=== PATIENT | female | born 1940 | race Hispanic/Latino ===

== ENCOUNTER 2024-05-06 04:22 | Emergency (ER) | payer MEDICARE, OTHER ==
[~2024-05-06] VITALS: Ht 157.5 cm; Wt 62.1 kg
[~2024-05-06 04:22] MED LIST: ALBUTEROL SULF8.5 GM INH; AMLODIPINE BESYL5 MG PO; ATORVASTATIN CA10 MG PO; COLACE100 MG PO; HYDROCHLOROTHIA25 MG PO; LEVAQUIN500 MG PO; LEVOTHYROXINE50 MCG PO; LEVOTHYROXINE75 MCG PO; LEXAPRO20 MG PO; METPCK PO; SENOKOT8.6 MG PO
[2024-05-06 07:48] VITALS: PULSE 74; RESP 16; TEMP 97.1; O2SAT 97
[2024-05-06] MEDS ORDERED: NAPROXEN250 MG PO (07:48)
== END 2024-05-06 08:00 | disposition home or self-care (01) ==
LOC: ER 04:28
DX: R50.9 Fever, unspecified (principal); R07.81 Pleurodynia; W18.39XA Other fall on same level, initial encounter; Y93.01 Activity, walking, marching and hiking; Y92.89 Other specified places as the place of occurrence of the external cause; I10 Essential (primary) hypertension; E78.5 Hyperlipidemia, unspecified; E78.00 Pure hypercholesterolemia, unspecified; F41.9 Anxiety disorder, unspecified
CPT/HCPCS: 71250; 99283

== ENCOUNTER 2024-10-08 11:36 | Emergency (ER) | payer MEDICARE ==
[~2024-10-08] VITALS: Ht 157.5 cm; Wt 62.1 kg
[~2024-10-08 11:36] MED LIST changes: +NAPROXEN250 MG PO
[2024-10-08 11:44] VITALS: PULSE 86; RESP 18; TEMP 98.1; O2SAT 96
[2024-10-08] MEDS: HYDROCODONE/APAP 5MG-325MG TAB PO ONE (13:05)
[2024-10-08] MEDS ORDERED: HYDROCODON-ACE1 EA11 PO (14:23)
== END 2024-10-08 15:12 | disposition home or self-care (01) ==
LOC: ER 11:58
DX: S52.592A Other fractures of lower end of left radius, initial encounter for closed fracture (principal); S52.612A Displaced fracture of left ulna styloid process, initial encounter for closed fracture; S09.90XA Unspecified injury of head, initial encounter; W01.0XXA Fall on same level from slipping, tripping and stumbling without subsequent striking against object, initial encounter; Y93.01 Activity, walking, marching and hiking; Y92.89 Other specified places as the place of occurrence of the external cause; I10 Essential (primary) hypertension; E78.5 Hyperlipidemia, unspecified; E78.00 Pure hypercholesterolemia, unspecified; F41.9 Anxiety disorder, unspecified; F32.A Depression, unspecified
CPT/HCPCS: 70450; 72125; 99283

== ENCOUNTER 2025-07-01 21:06 | Inpatient (IN) | payer MEDICARE ==
[~2025-07-01] VITALS: Ht 157.5 cm; Wt 62.3 kg
[~2025-07-01 21:06] MED LIST changes: +HYDROCODON-ACE1 EA11 PO
[2025-07-01 21:10] VITALS: RESP 16; TEMP 98
[2025-07-01 22:06] LABS: BASOPHILS % 0.6 % (0.0-1.0); EOSINOPHILS % 0.0 % (0.0-6.0); LYMPHOCYTES % 4.6 % (18.0-39.1); MONOCYTES % 5.4 % (4.4-11.3); NEUTROPHILS % 88.6 % (38.7-80.0); RED CELL DISTRIBUTION WIDTH 13.6 % (11.7-14.4)
[2025-07-01 22:30] LABS: EST GLOMERULAR FILTRATION RATE 66.0 ML/MIN (>=60)
[2025-07-01 23:39] LABS: CORONAVIRUS COVID-19 AG NEGATIVE (NEGATIVE)
[2025-07-01] MEDS ORDERED: ONDANSETRON HCL INJ 2MG/ML 2ML 2 MG/ML VIAL IV PRN (23:45)
[2025-07-02] VITALS (12 sets, daily range): BP systolic 132–164; BP diastolic 42–99; PULSE 84–96; RESP 17–20; TEMP 98.5–101.3; O2SAT 94–98
[2025-07-02] MEDS: SODIUM CHLORIDE 0.9% 1000ML 1,000 ML IV SCH (00:10)
[2025-07-02] MEDS: Morphine 2mg Syringe 2 MG/ML SYR IV PRN (02:41)
[2025-07-02 07:59] LABS: BASOPHILS % 0.2 % (0.0-1.0); EOSINOPHILS % 0.0 % (0.0-6.0); LYMPHOCYTES % 14.5 % (18.0-39.1); MONOCYTES % 0.2 % (4.4-11.3); NEUTROPHILS % 84.6 % (38.7-80.0); RED CELL DISTRIBUTION WIDTH 13.9 % (11.7-14.4)
[2025-07-02 08:21] LABS: EST GLOMERULAR FILTRATION RATE 78.0 ML/MIN (>=60)
[2025-07-02] MEDS: ACETAMINOPHEN 325 MG TAB PO PRN (10:07)
[2025-07-02 10:53] LABS: LEUKOCYTE ESTERASE ,URINE NEGATIVE (NEGATIVE); PROTEIN,URINE DIPSTICK TRACE (NEGATIVE)
[2025-07-02 10:54] LABS: URINE UROBILINOGEN 0.2 mg/dL (0.2 - 1)
[2025-07-02 10:57] LABS: EPITHELIAL CELLS,URINE FEW /LPF; WBC,URINE (MAN) 0-5 /HPF (0-5)
[2025-07-02] MEDS: LEVOFLOXACIN 750MG/D5W 150ML 150 ML IV SCH (11:15)
[2025-07-02] MEDS: ONDANSETRON HCL INJ 2MG/ML 2ML 2 MG/ML VIAL IV STA (18:28)
[2025-07-02] MEDS: PANTOPRAZOLE SOD 40 MG TABEC PO SCH (18:30)
[2025-07-03] VITALS (11 sets, daily range): BP systolic 123–161; BP diastolic 50–72; PULSE 62–95; RESP 18–20; TEMP 97.5–101.3; O2SAT 95–100
[2025-07-03] MEDS ORDERED: HYDRALAZINE HCL 20 MG/ML VIAL IV PRN (13:15)
[2025-07-03] MEDS ORDERED: ALBUTEROL SULF 0.083% NEB SOLN 3 ML NEB NEB PRN (13:15)
[2025-07-03] MEDS: AMLODIPINE BESYLATE 5 MG TAB PO SCH (17:55)
[2025-07-03] MEDS: ATORVASTATIN 40 MG TAB PO SCH (20:43)
[2025-07-04] VITALS (9 sets, daily range): BP systolic 119–159; BP diastolic 49–59; PULSE 60–77; RESP 18–20; TEMP 97.2–99.1; O2SAT 94–100
[2025-07-04] MEDS: LEVOTHYROXINE SODIUM 125 MCG TAB PO SCH (05:27)
[2025-07-04] MEDS: IBUPROFEN 600 MG TAB PO PRN (05:31)
[2025-07-04 06:25] LABS: BASOPHILS % 0.6 % (0.0-1.0); EOSINOPHILS % 0.0 % (0.0-6.0); LYMPHOCYTES % 22.6 % (18.0-39.1); MONOCYTES % 13.0 % (4.4-11.3); NEUTROPHILS % 63.2 % (38.7-80.0); RED CELL DISTRIBUTION WIDTH 13.4 % (11.7-14.4)
[2025-07-04 07:09] LABS: EST GLOMERULAR FILTRATION RATE 86.0 ML/MIN (>=60)
[2025-07-04 12:13] LABS: LYMPHOCYTES % (MANUAL) 17 % (19-48); MONOCYTES % (MANUAL) 9 % (3.4-9.0); NEUTROPHILS % (MANUAL) 74 % (40-74); PLATELET ESTIMATE SLIGHTLY DECREASED; PLATELET MORPHOLOGY COMMENT NORMAL
[2025-07-05] VITALS (12 sets, daily range): BP systolic 102–148; BP diastolic 52–65; PULSE 65–94; RESP 18–20; TEMP 97.7–98.8; O2SAT 94–98
[2025-07-05 07:02] LABS: BASOPHILS % 0.5 % (0.0-1.0); EOSINOPHILS % 0.0 % (0.0-6.0); LYMPHOCYTES % 16.8 % (18.0-39.1); MONOCYTES % 15.5 % (4.4-11.3); NEUTROPHILS % 66.7 % (38.7-80.0); RED CELL DISTRIBUTION WIDTH 13.4 % (11.7-14.4)
[2025-07-05 07:26] LABS: EST GLOMERULAR FILTRATION RATE 91.0 ML/MIN (>=60)
[2025-07-05 09:22] LABS: BAND NEUTROPHILS % (MANUAL) 1 %; LYMPHOCYTES % (MANUAL) 15 % (19-48); MONOCYTES % (MANUAL) 11 % (3.4-9.0); NEUTROPHILS % (MANUAL) 73 % (40-74)
[2025-07-05 09:23] LABS: PLATELET ESTIMATE SLIGHTLY DECREASED; PLATELET MORPHOLOGY COMMENT NORMAL; RBC MORPHOLOGY COMMENT NORMAL
[2025-07-05 16:59] LABS: CORONAVIRUS COVID-19 AG NEGATIVE (NEGATIVE)
[2025-07-06 03:41] VITALS: BP 120/42; PULSE 72; RESP 18; TEMP 98.6; O2SAT 96
[2025-07-06 06:38] VITALS: PULSE 63; RESP 20; O2SAT 95
[2025-07-06 06:58] LABS: BASOPHILS % 0.3 % (0.0-1.0); EOSINOPHILS % 0.3 % (0.0-6.0); LYMPHOCYTES % 21.5 % (18.0-39.1); MONOCYTES % 13.9 % (4.4-11.3); NEUTROPHILS % 63.7 % (38.7-80.0); RED CELL DISTRIBUTION WIDTH 13.3 % (11.7-14.4)
[2025-07-06 07:18] LABS: EST GLOMERULAR FILTRATION RATE 91.0 ML/MIN (>=60)
[2025-07-06 08:24] VITALS: BP 123/50; PULSE 73; RESP 18; TEMP 97.7; O2SAT 99
[2025-07-06 09:28] LABS: LYMPHOCYTES % (MANUAL) 17 % (19-48); MONOCYTES % (MANUAL) 11 % (3.4-9.0); NEUTROPHILS % (MANUAL) 72 % (40-74); PLATELET ESTIMATE SLIGHTLY DECREASED; PLATELET MORPHOLOGY COMMENT NORMAL; RBC MORPHOLOGY COMMENT NORMAL
[2025-07-06] MEDS: POTASSIUM CHLORIDE 20 MEQ TAB CR PO ONE (10:21)
[2025-07-06 10:23] LABS: PHOSPHORUS 1.9 MG/DL (2.3-4.7)
[2025-07-06 13:14] VITALS: BP 141/51; PULSE 67; RESP 18; TEMP 97.9; O2SAT 97
[2025-07-06] MEDS: POTASSIUM CHLORIDE 10MEQ EA PO ONE ×2 (14:15→18:12)
[2025-07-06] MEDS: MAGNESIUM SULFATE 2GM/50ML 50 ML IV ONE (14:15)
[2025-07-06] MEDS: POTASSIUM PHOSPHATE 15 MM in SODIUM CHLORIDE 0.9% 250ML 250 ML IV ONE (15:47)
[2025-07-06 16:40] LABS: EST GLOMERULAR FILTRATION RATE 90.0 ML/MIN (>=60)
[2025-07-06 16:46] VITALS: BP 151/64; PULSE 85; RESP 18; TEMP 98.2; O2SAT 97
[2025-07-06 20:00] VITALS: BP 127/66; PULSE 76; RESP 17; TEMP 98.6; O2SAT 98
== END 2025-07-06 20:46 | disposition home or self-care (01) | DRG 202 ==
LOC: ER 21:11 → ERHOLD 23:55 → MED/SURG3 07-02 01:33
PROVIDERS: ADMIT Internal Medicine; ATTEND Internal Medicine
DX: J20.9 Acute bronchitis, unspecified (principal); G93.41 Metabolic encephalopathy; D61.818 Other pancytopenia; E87.1 Hypo-osmolality and hyponatremia; E86.0 Dehydration; I11.0 Hypertensive heart disease with heart failure; I50.9 Heart failure, unspecified; F41.8 Other specified anxiety disorders; E78.00 Pure hypercholesterolemia, unspecified; E87.6 Hypokalemia; J45.909 Unspecified asthma, uncomplicated; E03.9 Hypothyroidism, unspecified; K76.0 Fatty (change of) liver, not elsewhere classified; K80.20 Calculus of gallbladder without cholecystitis without obstruction; R94.5 Abnormal results of liver function studies; E83.39 Other disorders of phosphorus metabolism; Z11.52 Encounter for screening for COVID-19; Z88.0 Allergy status to penicillin; Z79.891 Long term (current) use of opiate analgesic; Z79.890 Hormone replacement therapy; Z85.9 Personal history of malignant neoplasm, unspecified
CPT/HCPCS: 36415; 70450; 71045; 76700; 80048; 80053; 81001; 82550; 83010; 83690; 83735; 83880; 84100; 84484; 85025; 85045; 87040; 93005; 93306; 94799; 99284; J2270; J2405; J2470; J3475; J7030; J7050